=== PATIENT | male | born 1975 | race American Indian/Alaskan Native ===

== ENCOUNTER 2021-03-14 00:17 | Emergency (ER) | payer SELFPAY ==
--- NOTE | 2021-03-14 06:27 | Emergency Department Report ---
<PETRONA WOLFF - Last Filed: 03/14/21 13:02> ED General Adult HPI - General Chief complaint: Medical Clearance Stated complaint: SEEKING REHAB Time Seen by Provider: 03/14/21 06:10 Source: patient Mode of arrival: Ambulatory Limitations: No Limitations - History of Present Illness Initial comments: 45 year old AA male presents to ED requesting drug rehab programs/facilities. Patient reports hx of polysubstance abuse. He denies ETOH abuse. He denies SI/HI or any hallucinations. He denies any complaints at this time. Complaint: REquesting drug rehab resources; hx drug use -: days(s) - Related Data Allergies Allergy/AdvReac Type Severity Reaction Status Date / Time No Known Allergies Allergy Verified 03/14/21 02:57 ED Review of Systems Comment: All other systems reviewed and negative Constitutional: denies: chills, fever, weakness Eyes: denies: eye pain, eye discharge, vision change ENT: denies: ear pain, throat pain, dental pain, hearing loss, epistaxis, congestion Respiratory: denies: cough, shortness of breath, SOB with exertion, SOB at rest, wheezing Cardiovascular: denies: chest pain, palpitations, dyspnea on exertion, edema, syncope, paroxysmal nocturnal dyspnea Gastrointestinal: denies: abdominal pain, nausea, diarrhea, constipation, hematemesis, melena, hematochezia Genitourinary: denies: urgency, dysuria, frequency, hematuria, discharge, testicular pain, testicular mass Musculoskeletal: denies: back pain, joint swelling, arthralgia, myalgia Skin: denies: rash, lesions, change in color, change in hair/nails, pruritus Neurological: denies: headache, weakness, numbness, paresthesias, confusion, abnormal gait, vertigo Psychiatric: denies: anxiety, depression, auditory hallucinations, visual hallucinations, homicidal thoughts, suicidal thoughts Hematological/Lymphatic: denies: easy bleeding, easy bruising, swollen glands ED Past Medical Hx - Past Medical History Hx HIV: Yes - Surgical History Past Surgical History?: No ED Physical Exam - General Limitations: No Limitations General appearance: alert, in no apparent distress - Head Head exam: Present: atraumatic, normocephalic, normal inspection - Eye Eye exam: Present: normal appearance, PERRL, EOMI Pupils: Present: normal accommodation - Respiratory Respiratory exam: Present: normal lung sounds bilaterally. Absent: respiratory distress, wheezes, rales, rhonchi - Cardiovascular Cardiovascular Exam: Present: regular rate, normal rhythm, normal heart sounds - Neurological Exam Neurological exam: Present: alert, oriented X3, CN II-XII intact, normal gait - Psychiatric Psychiatric exam: Present: normal affect, normal mood - Skin Skin exam: Present: normal color ED Disposition Clinical Impression: Polysubstance abuse Disposition: HOME / SELF CARE / HOMELESS Is pt being admited?: No Does the pt Need Aspirin: No Condition: Stable Instructions: Substance Use Disorder, Supporting Someone With Substance Use Disorder Additional Instructions: I recommend following up with one the rehab facilities list on sheet given to you at discharge. Return to ED if worse. Referrals: [facility] [Provider Group] - 3-5 Days Time of Disposition: 06:26 <SHAZIA SALDAÑA - Last Filed: 03/14/21 15:56> ED Review of Systems ROS: Stated complaint: SEEKING REHAB Other details as noted in HPI ED Course Vital Signs 03/14/21 03/14/21 03/14/21 02:52 06:38 06:39 Temperature 98.2 F 98.2 F Pulse Rate 79 72 70 Respiratory 18 17 Rate Blood Pressure 100/62 Blood Pressure 116/73 [Left] O2 Sat by Pulse 100 100 99 Oximetry ED Medical Decision Making - Lab Data Vital Signs 03/14/21 03/14/21 03/14/21 02:52 06:38 06:39 Temperature 98.2 F 98.2 F Pulse Rate 79 72 70 Respiratory 18 17 Rate Blood Pressure 100/62 Blood Pressure 116/73 [Left] O2 Sat by Pulse 100 100 99 Oximetry Critical care attestation.: If time is entered above; I have spent that time in minutes in the direct care of this critically ill patient, excluding procedure time. ED Disposition Is pt being admited?: No Does the pt Need Aspirin: No
[2021-03-14 06:42] VITALS: BP 100/62
== END 2021-03-14 06:50 | disposition home or self-care (01) ==
LOC: ED 00:17
DX: F19.10 Other psychoactive substance abuse, uncomplicated (principal); Z21 Asymptomatic human immunodeficiency virus [HIV] infection status
CPT/HCPCS: 99282